=== PATIENT | female | born 1955 | race Caucasian/White ===

== ENCOUNTER 2016-08-14 19:04 | Emergency (ER) | payer OTHER ==
[~2016-08-14] VITALS: Ht 162.6 cm; Wt 99.8 kg
[~2016-08-14 19:04] MED LIST: DIAZEPAM5 MG PO; MOTRIN IB200 MG PO; NAPROSYN500 MG PO; VALIUM5 MG PO
[2016-08-14 19:40] LABS: HEMATOCRIT 39.2 % (36.0-46.0); MCH 28.1 PG (29.0-34.0); MCHC 33.4 G/DL (30.0-36.0); MCV 84.1 FL (83-99); MEAN PLAT.VOLUME 10.2 uM^3 (9.5-12.4); PLATELET COUNT 256 K/uL (156-360); RBC DIS.WIDTH-CV 14.6 % (11.8-14.6); RBC DIS.WIDTH-SD 44.4 % (39-53); RED BLOOD COUNT 4.66 M/uL (3.80-5.20); WHITE BLOOD COUNT 8.6 K/uL (4.1-10.2)
[2016-08-14 19:57] LABS: CHLORIDE 108 mEq/L (99-109); POTASSIUM 3.8 mEq/L (3.7-5.4); SODIUM 143 mEq/L (136-147)
[2016-08-14 19:58] LABS: GLUCOSE 98 mg/dL (70-99)
[2016-08-14 20:00] LABS: ANION GAP 12 MEQ/L (2-14)
[2016-08-14 20:02] LABS: GFR ESTIMATE (CALCULATED) > 59 mL/min/
[2016-08-14 20:03] LABS: UREA NITROGEN (BUN) 12 mg/dL (9-23)
[2016-08-14 20:08] LABS: TROP-I INTERPRETATION NEGATIVE; TROPONIN-I < 0.01 ng/mL (0.0-0.30)
[2016-08-14 22:21] LABS: TROP-I INTERPRETATION NEGATIVE; TROPONIN-I < 0.01 ng/mL (0.0-0.30)
[2016-08-14] MEDS ORDERED: NAPROXEN500 MG PO (23:18)
[2016-08-14 23:27] VITALS: BP 162/92
== END 2016-08-14 23:32 | disposition home or self-care (01) ==
LOC: EME 19:04
PROVIDERS: Physician Assistant
DX: R07.9 Chest pain, unspecified (principal)
CPT/HCPCS: 71020; 80048; 84484; 85027; 93005; 99281; 99284